=== PATIENT | female | born 1980 | race Caucasian/White ===

== ENCOUNTER 2024-05-05 09:34 | Emergency (ER) | payer OTHER ==
[2024-05-05 09:46] VITALS: BP 136/86; PULSE 82; RESP 18; TEMP 98.6; BMI 28.9
[2024-05-05 11:24] LABS: BASO % 1.2 % (0-2.0); EOS % 1.6 % (0-4.5); HEMATOCRIT 23.4 % (32.4-45.2); MCHC 29.8 g/dl (32.0-36.0); MEAN CELL VOLUME 56.8 fl (80-96); MEAN PLT VOLUME 8.2 fl (7.5-11.1); MONO % 3.8 % (3.8-10.2); NEUT % 56.4 % (42.8-82.8); PLATELET COUNT 602 10^3/uL (134-434); RBC 4.13 M/mm3 (3.60-5.2); RDW 19.5 % (11.6-15.6); WHITE BLOOD COUNT 4.5 K/mm3 (4.0-10.0)
[2024-05-05 11:31] LABS: MCH 16.9 pg (25.7-33.7)
[2024-05-05 11:33] LABS: INR 0.95 (0.83-1.09); PROTHROMBIN TIME (PATIENT) 10.9 SEC (9.7-13.0)
[2024-05-05 11:36] LABS: ACTIVATED PTT 29.7 SECONDS (25.2-36.5)
[2024-05-05 12:13] LABS: POTASSIUM 4.1 mmol/L (3.5-5.1)
[2024-05-05 12:17] LABS: ALBUMIN 4.1 g/dl (3.4-5.0)
[2024-05-05 12:20] LABS: CREATININE 0.5 mg/dL (0.55-1.3)
[2024-05-05 12:21] LABS: BILIRUBIN,TOTAL 0.4 mg/dL (0.2-1); TOT PROT 8.3 g/dl (6.4-8.2)
[2024-05-05 12:30] LABS: EPI CELLS 9 /uL (0-25.1); HYALINE CASTS 0 /uL (0-3.1); URINE APPEARANCE CLEAR; URINE BACTERIA 98 /uL (0-1359); URINE BILIRUBIN NEGATIVE (NEGATIVE); URINE COLOR YELLOW; URINE GLUCOSE (UA) NEGATIVE (NEGATIVE); URINE KETONE NEGATIVE (NEGATIVE); URINE LEUK ESTERASE NEGATIVE (NEGATIVE); URINE NITRITE NEGATIVE (NEGATIVE); URINE PROTEIN NEGATIVE (NEGATIVE); URINE RBC 4 /uL (0-23.9); URINE UROBILINOGEN 0.2 mg/dL (0.2-1.0); URINE WBC 6 /uL (0-25.8)
[2024-05-05 12:40] LABS: *STOOL FOR OCCULT BLOOD NEGATIVE (NEGATIVE)
[2024-05-05 13:35] LABS: ANISOCYTOSIS 2+; MACROCYTOSIS 0
== END 2024-05-05 14:00 | disposition home or self-care (01) ==
LOC: JER 09:34
DX: D50.9 Iron deficiency anemia, unspecified (principal)
CPT/HCPCS: 36415; 80053; 81003; 82272; 82728; 83010; 83540; 83550; 85025; 85610; 85730; 86850; 86900; 86901; 87086; 93005; 93010; 99284-25